=== PATIENT | male | born 1965 | race Hispanic/Latino ===

== ENCOUNTER 2018-08-01 22:00 | Emergency (ER) | payer BC ==
[2018-08-01 22:13] VITALS: TEMP 98.6
[2018-08-01] MEDS ORDERED: Iohexol 240 (50 ml) PO ONE (23:42)
--- NOTE | 2018-08-01 23:51 | ED PDOC ---
HPI: Abdomen Time Seen by Provider: 08/01/18 23:44 Chief Complaint (Nursing): Abdominal Pain Chief Complaint (Provider): ABDOMINAL PAIN History Per: Patient History/Exam Limitations: no limitations Onset/Duration Of Symptoms: Days Outside of [place] travel?: No Current Symptoms Are (Timing): Still Present Severity: Mild Location Of Pain/Discomfort: Diffuse Additional History Per: Patient Additional Complaint(s): 52 Y/O MALE WITH NO PAST MEDICAL HX PRESENTS TO THE ED C/O 6 WEEKS HISTORY OF ABDOMINAL DISCOMFORT, BLOATING AND FEELING "GASSY" PATIENT HE ELIMINTATED LACTOSE PRODUCTS IN HIS DIET AND FELT BETTER. ABOUT 2 WEEKS AGO PATIENT STARTED HAVING SIMILAR SYMPTOMS WITH RE-INTRODUCING LACTOSE PRODUCTS THIS TIME WITH CONSTIPATION FOR WHICH HE STARTED TAKING DUCOLAX WITH RELIEF. SINCE PATIENT HAS BEEN AVING TO TAKE DUCOLAX TO HAVE BOWEL MOVEMENTS. PATIENT ALSO REPORTS NOT HAVING SOLID PO INTAKE DUE TO SYMPTOMS. HE STATES HIS LAST TWO COLONOSCOPIES, LAST ONE BEING AT AGE 44 WAS NORMAL AND DUE TO FAM HX OF COLON CANCER HE IS DUE TO HAVE ANOTHER DONE. PATIENT STATES HE HAS AN APPOINTMENT ON SATURDAY TO SEE GI. PATIENT DENIES NAUSEA, VOMITING, DARK OR BLOOD STOOLS, FEVER, URINARY COMPLAINTS. Past Medical History Reviewed: Historical Data, Nursing Documentation, Vital Signs Vital Signs: Last Vital Signs Temp 98.6 F 08/01/18 22:09 Pulse 82 08/01/18 22:09 Resp 18 08/01/18 22:09 BP 145/83 08/01/18 22:09 Pulse Ox 97 08/01/18 22:09 AGUSTIN Report Viewed: No - Medical History PMH: No Chronic Diseases - Surgical History Surgical History: No Surg Hx - Family History Family History: States: Other Other Family History: COLON CA- FATHER - Living Arrangements Living Arrangements: With Family - Social History Alcohol: None Drugs: Denies - Home Medications Home Medications: Ambulatory Orders Medication Instructions Recorded Famotidine [Pepcid] 40 mg PO HS #30 tab 08/02/18 - Allergies Allergies/Adverse Reactions: Allergies Allergy/AdvReac Type Severity Reaction Status Date / Time shellfish derived Allergy ANGIOEDEMA Verified 08/01/18 22:09 Review of Systems ROS Statement: Except As Marked, All Systems Reviewed And Found Negative Constitutional: Negative for: Fever, Chills, Sweats, Weakness, Malaise Respiratory: Negative for: Shortness of Breath, SOB with Exertion Gastrointestinal: Positive for: Abdominal Pain (EPIGASTRIC "FULLNESS" ), Constipation. Negative for: Nausea, Vomiting, Diarrhea, Melena Genitourinary Male: Negative for: Dysuria Physical Exam - Reviewed Nursing Documentation Reviewed: Yes Vital Signs Reviewed: Yes - Physical Exam Appears: Positive for: Well, Non-toxic, No Acute Distress Head Exam: Positive for: ATRAUMATIC, NORMAL INSPECTION, NORMOCEPHALIC Skin: Positive for: Normal Color, Warm, DRY Eye Exam: Positive for: EOMI, Normal appearance, PERRL ENT: Positive for: Normal ENT Inspection Neck: Positive for: Normal, Painless ROM, Supple Cardiovascular/Chest: Positive for: Regular Rate, Rhythm Respiratory: Positive for: CNT, Normal Breath Sounds Gastrointestinal/Abdominal: Positive for: Normal Exam, Bowel Sounds, Soft, Tenderness (SLIGHT TENDERNESS TO RIGHT LOWER QUAD ) Back: Positive for: Normal Inspection Extremity: Positive for: Normal ROM Neurological/Psych: Positive for: Awake, Alert, Normal Tone, Oriented - Laboratory Results Result Diagrams: 08/02/18 00:30 08/02/18 00:30 - ECG O2 Sat by Pulse Oximetry: 97 Medical Decision Making Medical Decision Making: --CBC --CMP -LIPASE --TROPONIN --0.9NS --PEPCID 02:28; PATIENT STATES FEELING BETTER AT THIS TIME. PENDING CT REPORT. 02:45: Labs reviewed by me, no abnomalities. Ct Scan reports: Neg for acute pathology. Clincal findings discussed with patient. Rx given for Pepcid 40mg PO daily. patient will follow-up with GI on Saturday. Patient given return to ed precautions. patient states understanding and agrees with plan. Disposition - Clinical Impression Clinical Impression: Abdominal pain - Patient ED Disposition Is Patient to be Admitted: No Counseled Patient/Family Regarding: Diagnosis, Need For Followup, Rx Given - Disposition Disposition: Routine/Home Disposition Time: 02:40 Condition: IMPROVED Prescriptions: Famotidine [Pepcid] 40 mg PO HS #30 tab Instructions: Stomach Ache and Stomach Upset Print Language: NAURUAN - POA Present On Arrival: None
[2018-08-02] MEDS ORDERED: Iohexol 240 (50 ml) ONE (00:23)
[2018-08-02] MEDS: Sodium Chloride 0.9% 1,000 ML IV SCH ×2 (00:24→01:56)
[2018-08-02 00:54] LABS: BASO % 0.7 % (0.0-2.0); EOS # 0.5 K/uL (0.0-0.7); EOS % 7.1 % (0.0-4.0); HEMOGLOBIN 16.1 g/dL (12.0-18.0); LYMPH # 1.6 K/uL (1.0-4.3); MEAN CELL VOLUME 93.8 fl (80.0-94.0); MEAN CORPUSCULAR HEMOGLOBIN 32.1 pg (27.0-31.0); MEAN CORPUSCULAR HGB CONC 34.2 g/dL (33.0-37.0); MEAN PLATELET VOLUME 7.6 fl (7.2-11.7); MONO # 0.5 K/uL (0.0-0.8); MONO % 6.3 % (0.0-10.0); NEUT # 4.7 K/uL (1.8-7.0); NEUT % 63.9 % (50.0-75.0); NRBC % 0.1 % (0.0-0.0); RBC 5.02 Mil/uL (4.40-5.90); RED CELL DISTRIBUTION WIDTH 12.6 % (11.5-14.5); WHITE BLOOD COUNT 7.3 K/uL (4.8-10.8)
[2018-08-02 01:04] LABS: ALBUMIN 4.5 g/dL (3.5-5.0); BLOOD UREA NITROGEN 12 mg/dl (9-20); CALCIUM 10.2 mg/dL (8.4-10.2); GFR NON-AFRICAN AMERICAN > 60
[2018-08-02 01:05] LABS: ALB/GLOB RATIO 1.5 (1.0-2.1); ALT/SGPT 27 U/L (21-72); AST/SGOT 28 U/L (17-59); LIPASE 102 U/L (23-300)
[2018-08-02 02:55] VITALS: BP 144/84; PULSE 73; RESP 15; O2SAT 100
--- NOTE | 2018-08-02 11:59 | CT ---
Date of service: 08/02/2018 PROCEDURE: CT Abdomen and Pelvis with contrast HISTORY: ABD PAIN COMPARISON: None. TECHNIQUE: Contrast dose: Radiation dose: Total exam DLP = 513.0 mGy-cm. This CT exam was performed using one or more of the following dose reduction techniques: Automated exposure control, adjustment of the mA and/or kV according to patient size, and/or use of iterative reconstruction technique. FINDINGS: LOWER THORAX: Heart size within range of normal. No significant pericardial effusion. Lung bases clear without infiltrate effusion or basilar pneumothorax. LIVER: Liver exhibits normal size and attenuation pattern without masses collections or calcifications. GALLBLADDER AND BILE DUCTS: Gallbladder physiologically distended. No evidence of intraluminal gallbladder calculi. PANCREAS: Unremarkable. No gross lesion or ductal dilatation. SPLEEN: Unremarkable. ADRENALS: Mildly prominent adrenal glands. KIDNEYS AND URETERS: No evidence of nephrolithiasis or hydronephrosis. No obvious renal masses or collections seen on this noncontrast study. VASCULATURE: Unremarkable. No aortic aneurysm. No aortic atherosclerotic calcification or mural plaque present. Note made of a tiny calcification which appears to located along the wall of the hepatic IVC BOWEL: Evaluation of the bowel is slightly limited due to incomplete opacification. The stomach is incompletely distended with slight thick-walled appearance. Visualized loops of small bowel exhibit normal contour and caliber. No evidence of acute mechanical small bowel obstruction with oral contrast material extending into the colon to the level of the proximal/mid transverse colon region. APPENDIX: The appendix is not positively identified on this exam however no obvious inflammatory changes seen right lower quadrant of the abdomen. Clinical correlation history, physical exam and laboratory values as the possibility of an early acute appendicitis cannot be excluded on this exam. PERITONEUM: Unremarkable. No free fluid. No free air. LYMPH NODES: Unremarkable. No enlarged lymph nodes. BLADDER: The urinary bladder is incompletely distended which in part accounts for slight thick-walled appearance. Muscular hypertrophy may contribute however the possibility of a cystitis or other intrinsic wall lesion not excluded. REPRODUCTIVE: Prostate gland measures approximately 4.6 cm in transverse dimension. BONES: Multilevel degenerative spondylosis of the thoracic spine. There is a mild dextroscoliosis centered at the L1-L2 level. OTHER FINDINGS: None. IMPRESSION: No evidence of nephrolithiasis or hydronephrosis. The appendix is not positively identified however no obvious inflammatory changes right lower quadrant of the abdomen. Clinical correlation with history physical exam and laboratory values recommended at the possibility of a very early acute appendicitis cannot be excluded on this exam. Urinary bladder wall thickening in part due to incomplete distention and probable muscular hypertrophy. Correlation urinalysis to exclude cystitis. Incidental note made of a tiny calcification which appears to be located along the wall of the hepatic IVC nonspecific
--- NOTE | 2018-08-02 17:32 | CARD ---
APPROVED REPORT Date of service: 08/01/2018 EKG Measurement Heart [id number] <Conclusion> Normal sinus rhythm Possible Left atrial enlargement Left axis deviation Incomplete right bundle branch block Abnormal ECG
== END 2018-08-02 02:55 | disposition home or self-care (01) ==
LOC: H.ER 22:00
DX: R10.9 Unspecified abdominal pain (principal)
CPT/HCPCS: 74176; 80053; 83690; 84484; 85025; 93005; 96374; 99283; J7030; Q9966